=== PATIENT | male | born 1945 | race Caucasian/White ===

== ENCOUNTER 2019-07-27 06:18 | Day surgery (SDC) | payer OTHER, SELFPAY ==
[2019-07-26 09:08] VITALS: BMI 18.1
--- NOTE | 2019-07-26 09:29 | ECG_ITS ---
Measurements Intervals [place] Rate: 85 P: KS: 0 QRS: -64 QRSD: 134 T: 63 QT: 371 QTc: 443 ATRIAL FIBRILLATION RIGHT BUNDLE BRANCH BLOCK [120+ ms QRS DURATION, UPRIGHT V1, 40+ ms S IN I/aVL/V4/V5/V6] LEFT ANTERIOR FASCICULAR BLOCK [QRS AXIS <= -45, QR IN I, RS IN II] PROBABLE SEPTAL MYOCARDIAL INFARCTION [35 ms Q WAVE IN V1/V2], OF INDETERMINATE AGE No previous ECG available for comparison Electronically Signed On 07-26-2019 19:21:24 [employer] by Miguel Campbell M.D. [id number]
[2019-07-26 09:47] LABS: Hematocrit 40.3 % (42.0-52.0); Hemoglobin 12.6 g/dL (11.7-16.6); Mean Corpuscular HGB Conc 31.3 g/dL (30.0-36.0); Mean Corpuscular Hemoglobin 26.8 pg (28.0-34.0); Mean Corpuscular Volume 85.7 fL (80-94); Mean Platelet Volume 10.2 fL (7.4-10.4); Platelet Count 276 10^3/cmm (130-400); Red Cell Distribution Width 17.4 % (12.1-15.1); White Blood Count 8.3 10^3/uL (4.0-10.0)
[2019-07-26 09:54] LABS: Blood Urea Nitrogen 43 mg/dL (8-23); Calcium 10.1 mg/Dl (8.8-10.2); Carbon Dioxide 25 mmol/L (22-29); Chloride 99 mmol/L (98-107); Glucose 132 mg/dL (74-106); Sodium 135 mmol/L (136-145)
[2019-07-26 10:32] LABS: Band Neutrophils Absolute 0.1 10^3/cmm (0.0-1.2); Giant Platelets Trace; Lymphocytes 30 %; Monocytes Absolute 0.7 10^3/cmm (0.1-0.6); Platelet Estimate Normal (Normal); Segmented Neutrophils 61 %; Total Cells Counted 100 (0-100)
[2019-07-27] VITALS (9 sets, daily range): BP systolic 111–130; BP diastolic 52–72; PULSE 31–61; RESP 15–20; TEMP 36.3–36.6; O2SAT 95–97
[2019-07-27] MEDS: sodium chloride 0.9% 1,000 ML 30 ML IV (07:10)
[2019-07-27 07:11] LABS: Glucose Point of Care 102 mg/dL (70-110)
--- NOTE | 2019-07-27 07:16 | ANES.PREANES ---
Pre-Anesthetic Assessment Pre-Anesthetic Assessment: Height/Weight: Height 1.78 m Weight 57.153 kg Temp Pulse Resp BP Pulse Ox 98 F 60 18 130/65 96 07/27/19 07:01 07/27/19 07:01 07/27/19 07:01 07/27/19 07:01 07/27/19 07:01 Proposed Procedure: Operation Date: 07/27/19 08:20 Proposed Procedures p Laparoscopic poss open Inguinal Hernia Repair w/ mesh [id number], K40.90(Not Applicable) - Vincent Dean MD Familial anesthetic complications: no trouble Was Beta Ketty taken within 24 hours: Yes Last intake: Intake Last Liquid Date 07/26/19 Last Liquid Time 22:00 Last Solid Date 07/26/19 Last Solid Time 19:00 Social: Social History: Tobacco Packs per day: 1 ppd Exam: Pre-Anes Outpt Exam: alert, oriented x 3, clear to auscultation bilaterally and regular rate & rhythm Additional Exam Findings (including area of procedure): afib Airway: MP: 2 Additional comments: edentulous Pulmonary: Pulmonary: COPD CV/HEM: CV/HEM: Afib and HTN Comments: AAA, stents placed in 2002 : : Chronic renal Insufficiency Hepatic: Hepatic: None reported GI: GI: GERD Metabolic: Metabolic: DM and Hyperlipidemia Musc/skel: Musc/skel: None reported Neuropsych: Neuropsych: None reported Anesthetic Plan: ASA status: IV Anesthesia: General Risk of > 500 ml blood loss (7ml/kg in children): No Other Pertinent Information: apixaban last taken on thursday Meds/Allergies Current Medications: Current Medications Generic Name Dose Route Start Last Admin Trade Name Freq PRN Reason Stop Dose Admin Sodium Chloride 1,000 mls @ 30 ml s/hr 07/27/19 06:30 07/27/19 07:10 Sodium Chloride 0.9% IV 07/28/19 06:29 30 mls/hr .Q24H ADEOLA Administration PFSH Anesthesia PFSH: Social History (Updated 07/26/19 @ 09:06 by Marnie Rossi RN) Smoking and tobacco status: current every day smoker cigarettes Packs smoked per day: 1 Years cigarettes smoked: 60 Data Anesthesia Labs: Other Labs: Laboratory Results - last 48 hr 07/26/19 07/26/19 07/27/19 09:20 09:20 07:08 WBC 8.3 RBC 4.70 Hgb 12.6 Hct 40.3 L MCV 85.7 MCH 26.8 L MCHC 31.3 RDW 17.4 H Plt Count 276 MPV 10.2 Total Counted 100 Segmented Neutroph ils 61 Band Neutrophils 1.0 Lymphocytes (Manua l) 30 Monocytes (Manual) 8.0 Absolute Monocytes 0.7 H Platelet Estimate Normal Giant Platelets Trace Sodium 135 L Potassium 5.0 Chloride 99 Carbon Dioxide 25 Anion Gap 16.0 BUN 43 H Creatinine 1.9 H Glucose 132 H POC Glucose 102 Calcium 10.1 Cardiac Studies: No Data to Display
--- NOTE | 2019-07-27 08:22 | ANES.PREANES ---
Pre-Anesthetic Assessment Pre-Anesthetic Assessment: Height/Weight: Height 1.78 m Weight 57.153 kg Temp Pulse Resp BP Pulse Ox 98 F 60 18 130/65 96 07/27/19 07:01 07/27/19 07:01 07/27/19 07:01 07/27/19 07:01 07/27/19 07:01 Proposed Procedure: Operation Date: 07/27/19 08:20 Proposed Procedures p Laparoscopic poss open Inguinal Hernia Repair w/ mesh [id number], K40.90(Not Applicable) - Vincent Dean MD Last intake: Intake Last Liquid Date 07/26/19 Last Liquid Time 22:00 Last Solid Date 07/26/19 Last Solid Time 19:00 Social: Social History: Alcohol and Tobacco Exam: Pre-Anes Outpt Exam: oriented x 3 Meds/Allergies Current Medications: Current Medications Generic Name Dose Route Start Last Admin Trade Name Freq PRN Reason Stop Dose Admin Sodium Chloride 1,000 mls @ 30 ml s/hr 07/27/19 06:30 07/27/19 07:10 Sodium Chloride 0.9% IV 07/28/19 06:29 30 mls/hr .Q24H ADEOLA Administration PFSH Anesthesia PFSH: Medical History (Updated 07/27/19 @ 08:23 by Vincent Dean MD) Hyperlipemia (Acute) Hypertension (Acute) Stage 4 chronic kidney disease (Acute) Surgical History (Updated 07/27/19 @ 08:23 by Vincent Dean MD) History of coronary artery stent placement (Acute) Social History (Updated 07/26/19 @ 09:06 by Marnie Rossi RN) Smoking and tobacco status: current every day smoker cigarettes Packs smoked per day: 1 Years cigarettes smoked: 60 Data Anesthesia Labs: Other Labs: Laboratory Results - last 48 hr 07/26/19 07/26/19 07/27/19 09:20 09:20 07:08 WBC 8.3 RBC 4.70 Hgb 12.6 Hct 40.3 L MCV 85.7 MCH 26.8 L MCHC 31.3 RDW 17.4 H Plt Count 276 MPV 10.2 Total Counted 100 Segmented Neutroph ils 61 Band Neutrophils 1.0 Lymphocytes (Manua l) 30 Monocytes (Manual) 8.0 Absolute Monocytes 0.7 H Platelet Estimate Normal Giant Platelets Trace Sodium 135 L Potassium 5.0 Chloride 99 Carbon Dioxide 25 Anion Gap 16.0 BUN 43 H Creatinine 1.9 H Glucose 132 H POC Glucose 102 Calcium 10.1 Cardiac Studies: No Data to Display
--- NOTE | 2019-07-27 08:40 | PM.HPUD ---
H&P update H&P Update: DATE OF SURGERY/PROCEDURE: 07/27/19 DATE H&P PERFORMED: 07/19/19 H&P UPDATE INFORMATION: H&P completed within last 30 days, No changes to prior documentation and H&P to be scanned into chart PLANNED PROCEDURE: Operation Date: 07/27/19 08:20 Proposed Procedures p Laparoscopic poss open Inguinal Hernia Repair w/ mesh [id number], K40.90(Not Applicable) - Vincent Dean MD Full H&P Medications/Allergies: Current Medications: Current Medications Generic Name Dose Route Start Last Admin Trade Name Freq PRN Reason Stop Dose Admin Sodium Chloride 1,000 mls @ 30 ml s/hr 07/27/19 06:30 07/27/19 07:10 Sodium Chloride 0.9% IV 07/28/19 06:29 30 mls/hr .Q24H ADEOLA Administration Perinent History: Medical/Surgical History: Medical History (Updated 07/27/19 @ 08:23 by Vincent Dean MD) Hyperlipemia (Acute) Hypertension (Acute) Stage 4 chronic kidney disease (Acute) Social History: Social History Smoking and tobacco status: current every day smoker cigarettes Packs smoked per day: 1 Years cigarettes smoked: 60
[2019-07-27] MEDS: ceFAZolin 1,000 MG in sodium chloride 0.9% (plus) 50 ML 100 MG IV (09:00)
--- NOTE | 2019-07-27 09:37 | PM.OP ---
Operative Report Post-Operative Note: Date of procedure: 07/27/19 Preop Diagnosis: Symptomatic reducible right inguinal hernia Post-op Findings: Reducible indirect right inguinal hernia Procedure Done: Laparoscopic total extraperitoneal repair of reducible right indirect inguinal hernia Pathology: none sent Surgeon: Vincent Dean Anesthesia: general Estimated blood loss (mL): 10 Condition: stable Disposition: PACU Operative Report: Procedure: The patient was taken to the operating room. After IV antibiotic was administered, the abdomen was prepped and draped in a sterile manner. Using a 15 blade, a 1.0 cm transverse incision was made infraumbilically on the right side. Subcutaneous tissue was divided using electrocautery and the anterior rectus sheath divided using an 11 blade. The rectus muscle was retracted laterally and the extraperitoneal space identified. A 11 mm port was placed and 12 mm of pneumoperitoneum was created. A 10 mm 30? scope was introduced and the retrorectus space was opened using the camera up to the pubic symphysis and 5 mm ports were placed in the midline, one 2-fingerbreadths above the pubic symphysis and the other midway between these two ports under direct visualization. Blunt dissection was carried out to open up the tissue in the midline and to the pubic symphysis, which was identified. The dissection was then carried laterally where the iliopubic tract was identified. There was no femoral, obturator or direct hernia noted. The inferior epigastric artery was identified and dissection was carried posterior to it and laterally, the space was opened up to the level of the umbilicus superior to the anterior superior iliac spine. I then proceeded to dissect out the spermatic cord and the indirect hernial sac was reduced . 15 x 10cm Ultrapro mesh was rolled and introduced through the 10 mm port and then rolled laterally and apposed well against the abdominal wall to cover the myopectineal orifice completely. 10 Cc of 0.5% Marcaine was infiltrated into the preperitoneal space. The extraperitoneal space was desufflated under direct visualization to ensure no slippage of hernial sac under the mesh. All ports were removed, the anterior rectus fascia at the infraumbilical port closed using figure of eight 0 Vicryl sutures, subcutaneous tissue approximated using 3-0 Vicryl sutures and skin at all three port sites were closed using running subcuticular 4-0 Monocryl sutures and Dermabond. 10 mL of 0.5% Marcaine was infiltrated at the port sites. The patient was stable throughout the procedure. Coding Level of Care Code Acute Technical Services Coordinator for Justin Kern
--- NOTE | 2019-07-27 13:29 | ANE.PACU ---
 Inpatient post-anesthesia follow up: Airway intact: Yes Vital signs: Temperature 97.8 F Pulse Rate [Left B rachial] 31 Respiratory Rate 18 Blood Pressure [Le ft Arm] 120/55 Pulse Oximetry 97 Oxygen Delivery Me thod Room Air Oxygen Flow Rate Fraction of Inspir ed Oxygen Hydration adequate: Yes Nausea and vomiting: No Mental status: Baseline
== END 2019-07-27 11:00 | disposition home or self-care (01) ==
PROVIDERS: Anesthesiology Pain Medicine; Family Provider Internal Medicine; PCP Internal Medicine; Visit Provider Surgery
PROC: (CPT 49650; principal; 2019-07-27 08:20)
DX: K40.90 Unilateral inguinal hernia, without obstruction or gangrene, not specified as recurrent (principal); E78.5 Hyperlipidemia, unspecified; K21.9 Gastro-esophageal reflux disease without esophagitis; E11.22 Type 2 diabetes mellitus with diabetic chronic kidney disease; I12.9 Hypertensive chronic kidney disease with stage 1 through stage 4 chronic kidney disease, or unspecified chronic kidney disease; N18.4 Chronic kidney disease, stage 4 (severe); Z95.5 Presence of coronary angioplasty implant and graft; F17.210 Nicotine dependence, cigarettes, uncomplicated; J44.9 Chronic obstructive pulmonary disease, unspecified; I48.91 Unspecified atrial fibrillation
CPT/HCPCS: 49505; 36416; 80048; 82962; 85007; 85027; 93005; J0690; J1100; J2001; J2405; J2704; J3010; J3490; J7030

== ENCOUNTER 2019-07-28 17:17 | Emergency (ER) | payer OTHER, SELFPAY ==
[2019-07-28 17:54] VITALS: BP 133/66; PULSE 59; RESP 20; TEMP 36.7; O2SAT 93; BMI 18.1
--- NOTE | 2019-07-28 20:02 | ED_ITS ---
Entered by Maribel Marie, acting as scribe for Toyin Ambriz Jul 28, 2019 17:17 HPI - Male Genitourinary General: Chief complaint: Urogenital-Male Stated complaint: dysuria Time Seen by Provider: 07/28/19 19:42 History of Present Illness: HPI Narrative: 73 yo male presents to ED with complaints of urinary retention. The patient had hernia surgery yesterday with Dr Dean. The patient states that he has not been able to urinate much since that time. MD Complaint: dysuria Onset (ago): day(s) Duration: constant Location: abdomen Severity: moderate Quality: dull Relieving factors: urination Exacerbating factors: none Context: recent surgery Associated symptoms: Reports dysuria; Deny nausea or vomiting Review of Systems General: Reports: other (negative unless marked) Const: Denies: fever, chills, body aches, fatigue, malaise or diaphoresis Eyes: Denies: change in vision or blurry vision ENMT: Denies: throat pain, painful swallowing, hoarseness, ear pain, ear discharge, Change in hearing or nasal discharge Card: Denies: chest pain, palpitations, irregular heart rhythm, syncope, pre- syncope, shortness of breath on exertion or shortness of breath when lying down Resp: Denies: shortness of breath, productive cough, non-productive cough, wheezing, coughing up blood or chest congestion GI: Denies: abdominal pain, nausea, vomiting, vomiting blood, coffee grounds in vomit, diarrhea, constipation, cramping, blood in stool or black tarry stool : Reports: painful urination Musc: Denies: neck pain, back pain, extremity pain, extremity swelling, joint pain, joint swelling, joint warmth or joint stiffness Skin/Breast: Denies: rash, skin tenderness or yellow skin Neuro: Denies: headache, numbness in extremities, weakness in extremities, changes in sensation, lack of coordination, difficulty walking, dizziness, vertigo or confusion Endo: Denies: excessive thirst, tired all the time, cold intolerance, excessive sweating, flushing or hot flashes Brian/Lymph: Denies: easy bruising, easy bleeding, petechiae or enlarged lymph nodes All/Imm: Denies: hives, throat swelling, tongue swelling, facial swelling or acute wheezing PFSH ED PFSH: Statuses (acute, chronic, etc) shown below reflect problem list status as previously entered and may not be historically accurate Medical History (Updated 07/28/19 @ 21:25 by Toyin Ambriz) Hyperlipemia (Acute) Hypertension (Acute) Stage 4 chronic kidney disease (Acute) Surgical History (Updated 07/27/19 @ 08:23 by Vincent Dean MD) History of coronary artery stent placement (Acute) Social History (Updated 07/26/19 @ 09:06 by Marnie Rossi RN) Smoking and tobacco status: current every day smoker cigarettes Packs smoked per day: 1 Years cigarettes smoked: 60 Physical Exam Const: COMMON NORMALS: no apparent distress, oriented x3, no limitations, healthy appearing and well nourished EXAM LIMITATIONS: no altered mental status GENERAL APPEARANCE: cooperative, well kempt and well developed ORIENTATION/CONSCIOUSNESS: Yes awake HENMT: COMMON NORMALS: normocephalic, head/scalp atraumatic, hearing grossly normal bilaterally, external ears normal, EAC's normal, external nose normal and moist oral mucous membranes HEAD & SCALP: normal to inspection, normocephalic and atraumatic FACE & SINUS: normal facial exam and face symmetric NOSE: external nose normal and nares normal EXTERNAL EAR: Yes external ears normal EXTERNAL AUDITORY CANAL: EAC's normal MOUTH: oral and palatal mucosa normal and tongue normal Eye: COMMON NORMALS: PERRL, EOMs intact bilaterally, conjunctivae normal and no scleral icterus GENERAL EYE: normal appearance of both eyes and normal light reflex CONJUNCTIVA: Yes conjunctivae normal SCLERA: sclerae normal CORNEA: Yes corneas normal PUPIL: Yes PERRL DIRECT OPHTHALMOSCOPY: Yes normal light reflex Neck/C-Spine: COMMON NORMALS: full ROM, no lymphadenopathy, supple, no meningeal signs and no JVD GENERAL: Yes normal visual inspection and Yes trachea midline CERVICAL SPINE: Yes cervical ROM normal Chest: COMMONS NORMALS: inspection of chest normal and palpation of chest normal Resp: COMMON NORMALS: normal respiratory effort, no retractions, no use of accessory muscles and clear to auscultation bilaterally EFFORT & INSPECTION: Yes able to speak in complete sentences AUSCULTATION: clear to auscultation bilaterally Cardio: COMMON NORMALS: no JVD, regular rate, regular rhythm, S1 normal heart sound, S2 normal heart sound, no gallops, no clicks, no murmurs and no rub JUGULAR VENOUS DISTENTION: no JVD RATE: regular rate RHYTHM: regular rhythm HEART SOUNDS: S1 normal and S2 normal GI: COMMON NORMALS: soft to palpation, non-tender, no hepatosplenomegaly and no masses INSPECTION: Yes normal to inspection PALPATION: Yes soft and Yes no hepatosplenomegaly : COMMON NORMALS: Yes no CVA tenderness BLADDER/KIDNEY EXAM: Yes no CVA tenderness Back/Pelvis: COMMON NORMALS: no CVA tenderness, thoracic and lumbar spine normal to inspection, no thoracic nor lumbar tenderness and thoraco-lumbar ROM normal Extremity: COMMON NORMALS: normal to inspection, full ROM, normal capillary refill, no joint enlargement, no clubbing, cyanosis or edema and no calf tenderness Neuro: COMMON NORMALS: oriented x3, CN's II-XII intact bilaterally, moves all extremities, no focal motor deficits and no sensory deficits noted MENINGEAL SIGNS: Yes no meningeal signs Psych: COMMON NORMALS: mental status grossly normal, thought process normal, cooperative, affect normal, speech normal and activity/motor behavior normal APPEARANCE: Yes well kempt SPEECH: Yes normal speech THOUGHT PROCESS: normal thought process Skin: COMMON NORMALS: no rashes or lesions noted, skin turgor normal, no jaundice, no petechiae and no mottling GENERAL SKIN EXAM: no rashes or lesions noted and turgor normal Course Vital Signs: Vital signs: Vital Signs Temperature 98.1 F 07/28/19 17:54 Pulse Rate 60 07/28/19 21:44 Respiratory Rate 18 07/28/19 21:06 Blood Pressure 172/72 07/28/19 21:44 Pulse Oximetry 93 07/28/19 21:44 MDM - Male MDM Narrative: Medical decision making narrative: The patient comes in with urinary retention that is been intermittent since his hernia surgery. I do not believe he has had retention long enough to cause any type of urinary/kidney injury. The patient agrees to return if there is any fever or vomiting. Lab Data: Attestation: I reviewed the patient's lab results. Labs: Lab Results 07/28/19 Range/Units 18:08 Urine Color Yellow (Yellow) Urine Appearance Clear (CLEAR) Urine pH 5 (5-7) Ur Specific Gravit y 1.015 (1.005-1.030) Urine Protein Neg (Negative) Urine Glucose (UA) Norm (Normal) Urine Ketones Negative (Negative) Urine Occult Blood Neg (Negative) Urine Nitrate Negative (Negative) Urine Bilirubin Neg (NEGATIVE) Urine Urobilinogen Norm (Negative) mg/dL Ur Leukocyte Wendy ase Negative (Negative) Discharge Plan Discharge Patient Disposition: Home, Self-Care Clinical Impression: Acute retention of urine Condition: Stable Prescriptions: New Cipro 500 mg tablet 500 mg PO BID Qty: 20 RF: 0 No Action alogliptin 6.25 mg Tablet 6.25 mg PO DAILY RF: 0 isosorbide mononitrate 30 mg Tablet Extended Release 24 Hr 30 mg PO DAILY RF: 0 simvastatin 80 mg Tablet 80 mg PO DAILY RF: 0 tamsulosin 0.4 mg Capsule 0.4 mg PO DAILY RF: 0 ranitidine HCl 150 mg Tablet 150 mg PO BID RF: 0 nitroglycerin 0.4 mg Tablet, Sublingual 0.4 mg SUBLINGUAL Q5M PRN (Reason: Chest Pain) RF: 0 hydrochlorothiazide 25 mg Tablet 25 mg PO DAILY RF: 0 albuterol sulfate 90 mcg/actuation Hfa Aerosol Inhaler 2 puff INHALATION QID RF: 0 atenolol 50 mg Tablet 50 mg PO DAILY RF: 0 Vitamin D3 4,000 unit Capsule 4,000 unit PO DAILY RF: 0 apixaban 2.5 mg Tablet 2.5 mg PO BID RF: 0 [place] 5-325 mg tablet 1 tab PO Q6H Qty: 20 RF: 0 Colace 100 mg capsule 100 mg PO BID Qty: 30 RF: 0 Discharge Orders: Discharge Order (Routine); Ordered 07/28/19 Ordered By: Toyin Ambriz Referrals: Fercho Courtney [Primary Care Provider] - Vincent Dean MD [Physician] - 4-7 days Discharge Diet: Usual diet Discharge Activity: Increase activity as tolerated Patient Instructions: Garcia Catheter Care, Urinary Retention in Men (ED), Urinary Retention Activity Restrictions/Additional Instructions: Please return to the ER immediately for any of the signs or symptoms listed on your discharge instruction sheets, worsening/changing of your symptoms, you are not getting better as quickly as expected, or for ANY other cause or concerns. Discharge Date/Time: 07/28/19 21:45 Coding Level of Care Code ED Commercial Internship for Sharong Fwd Exam Problem Focused The documentation recorded by the Frank pace Valerie R, accurately reflects the service I personally performed and the decisions made by me, Toyin Ambriz Jul 28, 2019 17:17
[2019-07-28 20:18] VITALS: BP 175/85; PULSE 64; RESP 18; O2SAT 93
[2019-07-28 21:04] LABS: Add Urine Microscopic? NO
[2019-07-28 21:06] VITALS: BP 173/78; RESP 18; O2SAT 94
[2019-07-28 21:13] LABS: Bilirubin Urine Neg (NEGATIVE); Blood Urine Neg (Negative); Glucose Urine UA Norm (Normal); Ketones Urine Negative (Negative); Leukocyte Esterase Urine Negative (Negative); Nitrate Urine Negative (Negative); Protein Urine Neg (Negative); Specific Gravity, Urine 1.015 (1.005-1.030); Urine Appearance Clear (CLEAR); Urine Color Yellow (Yellow); Urobilinogen Urine Norm (Negative); pH Urine 5 (5-7)
[2019-07-28 21:44] VITALS: BP 172/72; PULSE 60; O2SAT 93
--- NOTE | 2019-07-29 13:32 | DCPLANNER ---
vice president & general manager [employer] [place] had message to schedule a follow up appointment for patient with general surgery, Dr. Dean. vice president & general manager [employer] [place] called [facility], spoke with Sobeida, a follow up appointment is scheduled for Thursday, August 01, 2019 at 1:[address] Dean. Clinic will call patient with appointment information. Case manage called [facility], with [facility], and informed her that patient had been seen in the ED and that patient has a follow up appointment scheduled.
--- NOTE | 2019-08-10 15:11 | DCPLANNER ---
Patient attended appointment scheduled for 08.01.19 with Real Estate Manager.
== END 2019-07-28 21:45 | disposition home or self-care (01) ==
PROVIDERS: Emergency Medicine; Emergency Provider Emergency Medicine; Family Provider Internal Medicine; PCP Internal Medicine
DX: R33.9 Retention of urine, unspecified (principal); E78.5 Hyperlipidemia, unspecified; I12.9 Hypertensive chronic kidney disease with stage 1 through stage 4 chronic kidney disease, or unspecified chronic kidney disease; N18.4 Chronic kidney disease, stage 4 (severe); F17.210 Nicotine dependence, cigarettes, uncomplicated
CPT/HCPCS: 81003; 99281

== ENCOUNTER 2019-07-31 08:40 | Emergency (ER) | payer OTHER, SELFPAY ==
[2019-07-31 08:46] VITALS: BP 113/61; PULSE 108; RESP 16; TEMP 36.6; O2SAT 94; BMI 18.2
--- NOTE | 2019-07-31 08:57 | ED_ITS ---
Entered by Winston Bundy LPN, acting as scribe for Jul 31, 2019 08:40 HPI - General Adult General: Chief complaint: General Medical Stated complaint: CONSTIPATED Time Seen by Provider: 07/31/19 08:51 Source: patient Limitations: no limitations History of Present Illness: HPI narrative: 73 yo male presents with c/o constipation. He had a right inguinal hernia repair 4 days ago, has been taking Hydrocodone 5/325mg since. His pain is only mild at this time, has Hydrocodone on board now. He has some discomfort in the abd, feels like he needs to have a BM but he can't. Last BM was 5 days ago, he normally has regular daily BM's. He has been passing gas. He denies nausea or vomiting, has been able to eat without issue. complaint: Constipation Onset (ago): day(s) (onset 4 days ago) Severity: moderate Relieving factors: none Exacerbating factors: medication (worsened with Hydrocodone) Associated symptoms: Deny chest pain, confusion, diaphoresis, dyspnea, headache(s), nausea, rash or vomiting Review of Systems Const: Denies: fever, chills, night sweats or diaphoresis Eyes: Denies: change in vision or blurry vision ENMT: Denies: throat pain Card: Denies: chest pain Resp: Denies: shortness of breath or productive cough GI: Reports: constipation; Denies: abdominal pain, nausea, vomiting or change in bowel habits : Denies: difficulty urinating or painful urination Musc: Denies: extremity pain or joint pain Skin/Breast: Denies: rash Neuro: Denies: headache, difficulty walking or confusion Psych: Denies: suicidal ideation or homicidal ideation PFSH ED PFSH: Statuses (acute, chronic, etc) shown below reflect problem list status as previously entered and may not be historically accurate Medical History Hyperlipemia (Acute) Hypertension (Acute) Stage 4 chronic kidney disease (Acute) Surgical History (Updated 07/31/19 @ 09:36 by Winston Bundy LPN) H/O right inguinal hernia repair (Acute) History of coronary artery stent placement (Acute) Social History Smoking and tobacco status: current every day smoker cigarettes Packs smoked per day: 1 Years cigarettes smoked: 60 Physical Exam Const: COMMON NORMALS: no apparent distress, oriented x3, no limitations and alert EXAM LIMITATIONS: no altered mental status GENERAL APPEARANCE: cooperative, comfortable and well developed; not in distress, not anxious and not lethargic ORIENTATION/CONSCIOUSNESS: Yes awake, Yes oriented to person, Yes oriented to place and Yes oriented to time; not lethargic HENMT: COMMON NORMALS: normocephalic, head/scalp atraumatic and external nose normal HEAD & SCALP: normocephalic and atraumatic FACE & SINUS: normal facial exam NOSE: external nose normal Eye: COMMON NORMALS: PERRL, EOMs intact bilaterally, conjunctivae normal and no scleral icterus CONJUNCTIVA: Yes conjunctivae normal PUPIL: Yes PERRL Neck/C-Spine: COMMON NORMALS: full ROM GENERAL: Yes normal visual inspection Chest: COMMONS NORMALS: inspection of chest normal and palpation of chest normal Resp: COMMON NORMALS: normal respiratory effort, no retractions, no use of accessory muscles and clear to auscultation bilaterally EFFORT & INSPECTION: Yes able to speak in complete sentences AUSCULTATION: clear to auscultation bilaterally Cardio: COMMON NORMALS: regular rate, regular rhythm, no murmurs and peripheral pulses 2+ throughout RATE: regular rate RHYTHM: regular rhythm PERIPHERAL PULSES: pulses 2+ throughout, radial pulses present and posterior tibial pulses present GI: COMMON NORMALS: normal to inspection, nondistended, normoactive bowel soun ds, soft to palpation, non-tender, no hepatosplenomegaly, no masses and no bruits AUSCULTATION: Yes normoactive bowel sounds PALPATION: Yes soft, No firm, No tender, No guarding, No rigid and Yes no hepatosplenomegaly OTHER: Hernia incision clean dry and intact Dermabond glue present over umbilicus Extremity: COMMON NORMALS: normal to inspection, full ROM, normal capillary refill, no joint enlargement and no clubbing, cyanosis or edema Neuro: COMMON NORMALS: oriented x3 SENSORIUM/ORIENTATION: Yes alert, Yes oriented to person, Yes oriented to place, Yes oriented to time and No lethargic Psych: COMMON NORMALS: mental status grossly normal, thought process normal, cooperative, affect normal, speech normal and activity/motor behavior normal SPEECH: Yes normal speech THOUGHT PROCESS: normal thought process Skin: COMMON NORMALS: no rashes or lesions noted and skin turgor normal GENERAL SKIN EXAM: no rashes or lesions noted, elasticity normal and turgor normal Course ED course: Patient resting comfortably. X-ray shows large stool but no impaction or obstruction. Patient comfortable going home. Vital signs and exam is emergent Reevaluation(s): Reevaluation #1: Patient resting comfortably discussed radiology results. Told him he has large amount of stool but there is stool in the rectal vault and no sign of any obstruction. Gave him instructions on [id number] therapies as well as increasing fiber and liquids. He asked me to take out the catheter that is been replaced but he has an appointment to see a urologist tomorrow so deferred. Time: 09:43 Vital Signs: Vital signs: Vital Signs Temperature 97.9 F 07/31/19 08:46 Pulse Rate 108 H 07/31/19 08:46 Respiratory Rate 16 07/31/19 08:46 Blood Pressure 113/61 07/31/19 08:46 Pulse Oximetry 94 07/31/19 08:46 MDM - General Adult MDM Narrative: Medical decision making narrative: Differential includes complication from surgery, constipation, small bowel obstruction, gastroenteritis. Patient is a 73-year-old male who had hernia surgery at the [facility] laparoscopically last week. He has not had a bowel movement since Thursday. He has not complained of severe abdominal pain there is no feculent or bilious vomiting. In fact there is no nausea or vomiting at all. He is mostly just concerned that he is not had a bowel movement since then. He has been taking opiate pain medication so this is likely the cause. Patient has a normal abdominal exam incisions are clean dry and intact. He has normal bowel sounds and is been passing gas very low suspicion for SBO. We will go ahead and get a KUB to assess for stool load. There is impaction or considerable amount of stool in the rectal vault we may be able to disimpact here if not will increase medications and have him follow-up Imaging Data^: KUB: Radiologist's impression: IMPRESSION: Large amount of stool throughout the colon. Dictated By:Victor M Johnson Discharge Plan Discharge Condition: Stable Prescriptions: No Action Cipro 500 mg tablet 500 mg PO BID Qty: 20 RF: 0 alogliptin 6.25 mg Tablet 6.25 mg PO DAILY RF: 0 isosorbide mononitrate 30 mg Tablet Extended Release 24 Hr 30 mg PO DAILY RF: 0 simvastatin 80 mg Tablet 80 mg PO DAILY RF: 0 tamsulosin 0.4 mg Capsule 0.4 mg PO DAILY RF: 0 ranitidine HCl 150 mg Tablet 150 mg PO BID RF: 0 nitroglycerin 0.4 mg Tablet, Sublingual 0.4 mg SUBLINGUAL Q5M PRN (Reason: Chest Pain) RF: 0 hydrochlorothiazide 25 mg Tablet 25 mg PO DAILY RF: 0 albuterol sulfate 90 mcg/actuation Hfa Aerosol Inhaler 2 puff INHALATION QID RF: 0 atenolol 50 mg Tablet 50 mg PO DAILY RF: 0 Vitamin D3 4,000 unit Capsule 4,000 unit PO DAILY RF: 0 apixaban 2.5 mg Tablet 2.5 mg PO BID RF: 0 Reserve 5-325 mg tablet 1 tab PO Q6H Qty: 20 RF: 0 Colace 100 mg capsule 100 mg PO BID Qty: 30 RF: 0 Referrals: Fercho Courtney [Primary Care Provider] - Coding Level of Care Code ED Visually Impaired Teacher for Chg Fwd Exam Problem Focused The documentation recorded by the Gregor pace Dani Elizabeth, LPN, accurately reflects the service I personally performed and the decisions made by Ronan de los santos Kenneth F, MD Jul 31, 2019 08:40
--- NOTE | 2019-07-31 09:06 | XRR_ITS ---
PROCEDURE INFORMATION: Exam: XR Abdomen, 1 View Exam date and time: 07/31/2019 9:07 AM Age: 73 years old Clinical indication: Abdominal pain; Localized; Lower; Prior surgery; Surgery date: 3-7 days post-operative; Surgery type: Inguinal; Additional info: Constipation TECHNIQUE: Imaging protocol: XR of the abdomen. Views: Frontal supine view of the abdomen. 1 View. COMPARISON: CT abdomen pelvis con [id number] 06/29/2019 11:55 AM FINDINGS: Gastrointestinal tract: No dilated gas-filled loops of bowel. There is a large amount of stool throughout the colon with stool and gas in the rectum. No signs to suggest mechanical bowel obstruction or an ileus. Bones/joints: No acute osseous abnormality. XR/XR [facility] [id number] IMPRESSION: Large amount of stool throughout the colon.
[2019-07-31] MEDS: lactulose oral liq 20 gm/30 mL UDC PO (10:26)
[2019-07-31] MEDS: polyethylene glycol 3350 Pkt 17 gm PO (10:26)
[2019-07-31] MEDS: magnesium citrate Btl 296 mL PO (10:26)
[2019-07-31 10:39] VITALS: BP 99/64; PULSE 85; RESP 16; O2SAT 93
== END 2019-07-31 10:40 | disposition home or self-care (01) ==
PROVIDERS: Emergency Provider Family Medicine; Family Provider Internal Medicine; PCP Internal Medicine
DX: K59.00 Constipation, unspecified (principal); E78.5 Hyperlipidemia, unspecified; I12.9 Hypertensive chronic kidney disease with stage 1 through stage 4 chronic kidney disease, or unspecified chronic kidney disease; N18.4 Chronic kidney disease, stage 4 (severe); F17.210 Nicotine dependence, cigarettes, uncomplicated
CPT/HCPCS: 74018; 99281

== ENCOUNTER → 2019-09-19 09:57 | Outpatient (BNVA) | payer OTHER, MEDICARE, SELFPAY | PROVIDERS: Family Provider Internal Medicine; PCP Internal Medicine; Visit Provider Urology | DX: R33.9 Retention of urine, unspecified (principal); N40.0 Benign prostatic hyperplasia without lower urinary tract symptoms | CPT/HCPCS: 81001 ==

== ENCOUNTER 2019-10-17 14:51 | Outpatient (CLI) | payer OTHER, MEDICARE, SELFPAY ==
--- NOTE | 2019-10-17 14:57 | US_ITS ---
WS: [id number] ULTRASOUND RENAL TECHNIQUE: Ultrasound examination of both kidneys. CLINICAL INFORMATION: ABNORMAL CT SCAN COMPARISON: Noncontrast CT June 29, 2019 FINDINGS: RIGHT: Right kidney is normal in size and appearance. Echogenicity: Normal Hydronephrosis: None. Perinephric fluid: None. Right kidney measures: 9.7 cm x 4.8 cm x 4.0 cm. LEFT: Upper pole left renal cyst measuring 1.8 x 1.1 cm and 1.2 x 0.9 cm additional renal cyst lower pole left kidney measuring 2.0 x 1.2 cm Left kidney is normal in size and appearance. Echogenicity: Normal. Hydronephrosis: None. Perinephric fluid: None. Left kidney measures: 10.4 cm x 4.3 cm x 4.7 cm. Fusiform infrarenal abdominal aortic aneurysm measuring 3.3 cm in maximum AP dimension. Enlarged pros olivas. Recommend correlation PSA. US/US renal BI* [id number] IMPRESSION: 1. Several left renal cysts described above. 2. No hydronephrosis in either kidney. 3. Enlarged prostate. Recommend correlation PSA. 4. Fusiform infrarenal abdominal aortic aneurysm appears stable since the prio r CT June 29, 2019.
== END 2019-10-17 14:52 | disposition home or self-care (01) ==
LOC: RAD 14:57
PROVIDERS: Family Provider Internal Medicine; PCP Internal Medicine; Visit Provider Internal Medicine
DX: R93.89 Abnormal findings on diagnostic imaging of other specified body structures (principal); Q61.02 Congenital multiple renal cysts; N40.0 Benign prostatic hyperplasia without lower urinary tract symptoms
CPT/HCPCS: 76770

== ENCOUNTER 2021-05-03 15:27 | Outpatient (CLI) | payer OTHER, SELFPAY ==
--- NOTE | 2021-05-03 15:47 | US_ITS ---
WS: [id number] RENAL ULTRASOUND HISTORY: STAGE 3 B KIDNEY DISEASE COMPARISON: 10/17/2019 TECHNIQUE: 2-D and color Doppler imaging of the kidney submitted. Right kidney: 8.2 cm x 4.5 cm x 3.8 cm. Mild atrophy with no solid mass or obstruction. Normal cortical medullary differentiation. Left kidney: 9.8 cm x 5.3 cm x 5.0 cm. Normal size kidney. No obstruction. There are multiple acquired cysts throughout the kidney. No solid mass. Largest cyst in the superior pole measures 1.9 x 1.3 x 1.6 cm. Aorta: Moderate atherosclerosis aorta. Scattered plaque with mild dilatation of the aorta. Maximum tr ansverse diameter is 3.8 cm. Maximum AP diameter is 3.7 cm. Urinary Bladder: Normal distention. Mild prostate gland enlargement. US/US renal BI* [id number] IMPRESSION: 1. No renal obstruction. 2. Multiple acquired LEFT renal cyst. No solid mass or obstruction. 3. Mild RIGHT renal atrophy. 4. Abdominal aortic aneurysm with a maximum diameter of 3.8 cm. Diameter has s lightly increased in size since the prior CT of 06/29/2019. Maximum diameter at that time was 3.4 cm.
== END 2021-05-03 15:28 | disposition home or self-care (01) ==
LOC: US 15:29
PROVIDERS: PCP Family Medicine; Visit Provider Internal Medicine
DX: N18.32 Chronic kidney disease, stage 3b (principal); Q61.02 Congenital multiple renal cysts; N26.1 Atrophy of kidney (terminal); I71.4 Abdominal aortic aneurysm, without rupture
CPT/HCPCS: 76770

== ENCOUNTER → 2022-03-11 12:50 | Outpatient (BNVA) | payer OTHER, SELFPAY | PROVIDERS: PCP Family Medicine; Visit Provider Surgery | DX: Z86.010 Personal history of colon polyps (principal); N50.811 Right testicular pain | CPT/HCPCS: 99203 ==

== ENCOUNTER 2022-04-23 07:29 | Day surgery (SDC) | payer OTHER, SELFPAY ==
[2022-04-21 13:59] VITALS: BMI 15.3
[2022-04-23] MEDS: sodium chloride 0.9% 1,000 ML 30 ML IV (07:45)
[2022-04-23 07:47] VITALS: BP 131/70; PULSE 64; RESP 18; TEMP 36.4; O2SAT 98
--- NOTE | 2022-04-23 07:53 | ANES.PREANE2 ---
Pre-Anesthetic Assessment Height/Weight: Height 1.78 m Weight 48.534 kg Temp Pulse Resp BP Pulse Ox 97.6 F 64 18 131/70 98 04/23/22 07:47 04/23/22 07:47 04/23/22 07:47 04/23/22 07:47 04/23/22 07:47 Preop Diagnosis: Symptomatic reducible right inguinal hernia Operation Date: 04/23/22 09:30 Proposed Procedures p EGD and colonoscopy [id number],Z86.010(Not Applicable) - Harsh Monge DO s Colonoscopy(Not Applicable) - Harsh Monge DO Familial anesthetic complications: hard to wake up. Could not use restroom after Was Beta Ketty taken within 24 hours: Yes Was Clonidine taken within 24 hours: N/A Last intake: Intake Last Liquid Date 04/22/22 Last Liquid Time 21:00 Last Solid Date 04/21/22 Social Tobacco 50+ pack years Exam alert, oriented x 3, clear to auscultation bilaterally and regular rate & rhythm Airway Submandibular: within normal limits Cervical ROM: within normal limits Mallampati: Class II Dentition: false Pulmonary Chronic Obstructive Pulmonary Disease, Cough, Exertional Dyspnea and Shortness of Breath CV/HEM Coronary Artery Disease, Deep Vein Thrombosis, Hypertension and Myocardial Infarction (PTCA 10 yrs ago) Chronic Renal Insufficiency Hepatic None reported GI Gastroesophageal Reflux Disease Metabolic None reported Musc/skel Lower Back Pain, Osteoarthritis/DJD and Weakness (Right leg. Uses waller) Neuropsych None reported Anesthetic Plan ASA status: 3 Anesthesia: MAC Medications/Allergies Home Medications Medication Instructions Recorded Confirmed Last Taken Type albuterol sulfate 90 mcg/actuation 2 puff inhalation QID 07/26/19 04/23/22 04/22/22 History aerosol inhaler alogliptin 6.25 mg tablet 6.25 mg PO DAILY 07/26/19 04/23/22 04/22/22 History apixaban 2.5 mg tablet 2.5 mg PO BID 07/26/19 04/22/22 04/20/22 History atenolol 50 mg tablet 12.5 mg PO DAILY 07/26/19 04/23/22 04/22/22 History hydrochlorothiazide 25 mg tablet 25 mg PO DAILY 07/26/19 04/23/22 04/22/22 History isosorbide mononitrate 30 mg 30 mg PO DAILY 07/26/19 04/23/22 04/22/22 History tablet,extended release 24 hr nitroglycerin 0.4 mg sublingual 0.4 mg sublingual Q5M PRN Chest 07/26/19 04/21/22 Unknown History tablet Pain docusate sodium 100 mg capsule 100 mg PO BID #30 caps 07/27/19 04/23/22 04/22/22 Rx (Colace) cholecalciferol (vitamin D3) 10 400 unit PO BID 08/04/19 04/23/22 04/22/22 History mcg (400 unit) chewable tablet simvastatin 80 mg tablet 80 mg PO .COMPLEX 08/04/19 04/23/22 04/22/22 History Allergies Allergy/AdvReac Type Severity Reaction Status Date / Time lisinopril Allergy ALGY-Rash Verified 04/23/22 08:15 [facility] Anesthesia Medical History (Updated 03/15/22 @ 21:41 by Harsh Monge DO) BPH NOS w/o ur obs/LUTS Hyperlipemia Hypertension Postoperative urinary retention Right inguinal hernia Stage 4 chronic kidney disease Surgical History (Updated 03/15/22 @ 21:41 by Harsh Monge DO) H/O right inguinal hernia repair History of coronary artery stent placement History of facial surgery Chainsaw accident. History of hip surgery right Family History Mother , AT AGE 89-CVA Stroke Father , AT AGE 42-HEART ATTACK No problems noted. Denies family history of Anesthesia complication Bleeding disorder Social History Smoking and tobacco status: current every day smoker cigarettes Packs smoked per day: 1 Years cigarettes smoked: 60 Alcohol intake: current Alcohol intake frequency: few times a month Lives independently: Yes Household members: spouse Marital status: Current occupational status: retired History of recent travel: No Data Anesthesia Cardiac Studies: No Data to Display
[2022-04-23 08:05] LABS: Glucose Point of Care 83 mg/dL (70-110)
--- NOTE | 2022-04-23 08:26 | PM.HP ---
Providers/Chief Complaint Primary Care Provider: Rani Parker MD Chief Complaint: Colon cancer screening History of Present Illness Abel Farfan is a 76 year old male here for colonoscopy Medications/Allergies Home Medications Medication Instructions Recorded Confirmed Last Taken Type albuterol sulfate 90 mcg/actuation 2 puff inhalation QID 07/26/19 04/23/22 04/22/22 History aerosol inhaler alogliptin 6.25 mg tablet 6.25 mg PO DAILY 07/26/19 04/23/22 04/22/22 History apixaban 2.5 mg tablet 2.5 mg PO BID 07/26/19 04/22/22 04/20/22 History atenolol 50 mg tablet 12.5 mg PO DAILY 07/26/19 04/23/22 04/22/22 History hydrochlorothiazide 25 mg tablet 25 mg PO DAILY 07/26/19 04/23/22 04/22/22 History isosorbide mononitrate 30 mg 30 mg PO DAILY 07/26/19 04/23/22 04/22/22 History tablet,extended release 24 hr nitroglycerin 0.4 mg sublingual 0.4 mg sublingual Q5M PRN Chest 07/26/19 04/21/22 Unknown History tablet Pain docusate sodium 100 mg capsule 100 mg PO BID #30 caps 07/27/19 04/23/22 04/22/22 Rx (Colace) cholecalciferol (vitamin D3) 10 400 unit PO BID 08/04/19 04/23/22 04/22/22 History mcg (400 unit) chewable tablet simvastatin 80 mg tablet 80 mg PO .COMPLEX 08/04/19 04/23/22 04/22/22 History Allergies Allergy/AdvReac Type Severity Reaction Status Date / Time lisinopril Allergy ALGY-Rash Verified 04/23/22 08:15 PFSH Acute PFSH: Medical History (Updated 03/15/22 @ 21:41 by Harsh Monge DO) BPH NOS w/o ur obs/LUTS Hyperlipemia Hypertension Postoperative urinary retention Right inguinal hernia Stage 4 chronic kidney disease Surgical History (Updated 03/15/22 @ 21:41 by Harsh Monge DO) H/O right inguinal hernia repair History of coronary artery stent placement History of facial surgery Chainsaw accident. History of hip surgery right Family History Mother , AT AGE 89-CVA Stroke Father , AT AGE 42-HEART ATTACK No problems noted. Denies family history of Anesthesia complication Bleeding disorder Social History Smoking and tobacco status: current every day smoker cigarettes Packs smoked per day: 1 Years cigarettes smoked: 60 Alcohol intake: current Alcohol intake frequency: few times a month Lives independently: Yes Household members: spouse Marital status: Current occupational status: retired History of recent travel: No Vitals/I&O/Wt Last Vital Signs Temp 97.6 F 04/23/22 07:47 Pulse 64 04/23/22 07:47 Resp 18 04/23/22 07:47 BP 131/70 04/23/22 07:47 Pulse Ox 98 04/23/22 07:47 Weight last 48 hrs Weight 107 lb A&P Assessment and plan (1) Encounter for screening colonoscopy: Plan Colonoscopy Attestations Medical Necessity Statement*: Home Coding Level of Care Code Acute Applications Engineer Manufacturing for Justin Fwd Diagnoses Encounter for screening colonoscopy Z12.11
[2022-04-23 09:29] VITALS: BP 161/80; PULSE 65; RESP 20; TEMP 36.1; O2SAT 99
[2022-04-23 09:44] VITALS: BP 165/88; PULSE 62; RESP 18; O2SAT 96
--- NOTE | 2022-04-23 10:10 | ANE.PACU2 ---
Inpatient post-anesthesia follow up: Airway intact: Yes Vital signs: Temperature 97 F Pulse Rate 62 Respiratory Rate 18 Blood Pressure 165/88 Pulse Oximetry 96 Oxygen Delivery Me thod Room Air Oxygen Flow Rate Fraction of Inspir ed Oxygen Hydration adequate: Yes Nausea and vomiting: No Pain level: 1 Mental status: Baseline
== END 2022-04-23 10:11 | disposition home or self-care (01) ==
PROVIDERS: PCP Family Medicine; Visit Provider Surgery
PROC: 0DJD8ZZ Inspection of Lower Intestinal Tract, Via Natural or Artificial Opening Endoscopic (ICD-10-PCS; CPT 45378; 2022-04-23 09:30)
DX: Z12.11 Encounter for screening for malignant neoplasm of colon (principal); K51.40 Inflammatory polyps of colon without complications; Z86.010 Personal history of colon polyps; N40.1 Benign prostatic hyperplasia with lower urinary tract symptoms; N13.8 Other obstructive and reflux uropathy; E78.5 Hyperlipidemia, unspecified; I12.9 Hypertensive chronic kidney disease with stage 1 through stage 4 chronic kidney disease, or unspecified chronic kidney disease; N18.4 Chronic kidney disease, stage 4 (severe); J44.9 Chronic obstructive pulmonary disease, unspecified; I25.10 Atherosclerotic heart disease of native coronary artery without angina pectoris; Z86.718 Personal history of other venous thrombosis and embolism; I25.2 Old myocardial infarction; K21.9 Gastro-esophageal reflux disease without esophagitis; M19.90 Unspecified osteoarthritis, unspecified site; F17.210 Nicotine dependence, cigarettes, uncomplicated
CPT/HCPCS: 36416; 45385; 82962; 88305; J2704; J7030

== ENCOUNTER → 2022-05-06 09:14 | Outpatient (BNVA) | payer OTHER, SELFPAY | PROVIDERS: PCP Family Medicine; Visit Provider Surgery | DX: Z09 Encounter for follow-up examination after completed treatment for conditions other than malignant neoplasm (principal) | CPT/HCPCS: 99212 ==

== ENCOUNTER → 2022-07-24 14:26 | Outpatient (BNVA) | payer OTHER, SELFPAY | PROVIDERS: PCP Family Medicine; Referring Provider Family Medicine; Visit Provider Internal Medicine | DX: E27.9 Disorder of adrenal gland, unspecified (principal); R63.4 Abnormal weight loss; Z68.1 Body mass index [BMI] 19.9 or less, adult | CPT/HCPCS: 99204 ==

== ENCOUNTER 2022-08-05 10:58 | Outpatient (CLI) | payer OTHER, MEDICARE, SELFPAY ==
--- NOTE | 2022-08-05 11:04 | US_ITS ---
WS: [id number] TESTICULAR ULTRASOUND HISTORY: right testicular pain COMPARISON: None available. TECHNIQUE: Real-time and color Doppler imaging or utilized to perform a testicular ultrasound. Right testicle: 4.4 cm x 3.4 cm x 2.3 cm. Normal size and echogenicity. No mass or torsion. Normal color Doppler is present throughout. Systolic and diastolic velocities are both present. Small simple hydrocele. Right epididymis: Normal size epididymis. Small epididymal head cyst measuring 5 x 4 x 4 mm. No incre ased vascularity. Left testicle: 4.3 cm x 3.7 cm x 2.4 cm. Normal size and echogenicity. No mass or torsion. Normal color Doppler is present throughout. Systolic and diastolic velocities are both present. Small simple hydrocele. Left epididymis: Normal epididymis with no increased vascularity. US/US scrotum [id number] IMPRESSION: 1. No testicular mass or torsion. 2. Small RIGHT epididymal cyst. 3. Very small bilateral simple hydroceles.
== END 2022-08-05 10:59 | disposition home or self-care (01) ==
PROVIDERS: PCP Family Medicine; Visit Provider Surgery
DX: N43.2 Other hydrocele (principal); N50.3 Cyst of epididymis
CPT/HCPCS: 76870

== ENCOUNTER 2022-11-08 06:09 | Outpatient (CLI) | payer OTHER, SELFPAY ==
--- NOTE | 2022-11-08 | PETR_ITS ---
PROCEDURE INFORMATION: Exam: PET/CT Skull Base to Mid-thigh Exam date and time: 11/08/2022 9:32 AM Age: 77 years old Clinical indication: Abnormal findings; Abnormal CT at outside facility; Patient HX: Abnormal CT, lung nodules, kidney cysts, enlarged prostate LABS AND CLINICAL REPORTS: Glucose: 93 mg/dl Treatment strategy for malignancy (PET staging): Initial Staging (PI) TECHNIQUE: Imaging protocol: Following at least four-hour fasting and following the injection of radiopharmaceutical, low dose CT images were obtained. Then, PET images were obtained. Attenuation corrected images were constructed using the CT scan. Fused images of PET and CT were reviewed. The standardized uptake values (SUV) reported below are maximum values within a region of interest, expressed in gm/ml. Exam includes orbital meatal line to mid-thigh. Radiopharmaceutical: 15.57 mCi F-18 FDG (Fluorodeoxyglucose), IV. Time of imaging post radiopharmaceutical administration: 1 hour Injection site: Left hand COMPARISON: Scrotal ultrasound 08/05/2022, Renal ultrasound 05/03/2021, CT abdomen pelvis wo con [id number] 06/29/2019 11:55 AM FINDINGS: Brain: Visualized brain has normal physiologic uptake. Pharynx: No abnormal uptake. Larynx: No abnormal uptake. Thyroid: A non radiotracer avid hypodense nodule in the left thyroid lobe is noted measuring 8 mm on series 3, image 40 compatible with a benign finding. Lungs, pleura and trachea: No abnormal uptake. Non radiotracer avid biapical bullous changes and pleural scarring is noted. A 2-3 mm noncalcified lateral right upper lobe nodule on series 3, image 52 is noted without elevated uptake. Possible additional slightly more inferiorly located nodule measuring 5-6 mm on series 3, image 54 without elevated uptake. Assessment of the lungs is slightly limited by respiratory motion artifact. Heart: Normal physiologic uptake. Mediastinal space: No abnormal uptake. Liver: No abnormal uptake. Gallbladder and bile ducts: No abnormal uptake. Pancreas: No abnormal uptake. Spleen: No abnormal uptake. Calcified granulomas in the spleen are present. Adrenal glands: No abnormal uptake. Kidneys and ureters: Normal physiologic uptake. A non radiotracer avid low-density structure in the superior pole of the left kidney measures 1 cm on series 3, image 89. Stomach and bowel: No abnormal uptake. Reproductive: The prostate gland is mildly prominent without evidence of abnormal uptake. Vasculature: No abnormal uptake. There are diffuse atherosclerotic changes. An infrarenal abdominal aortic aneurysm measures up to 4.4 x 4.2 cm on series 3, image 108. Lymph nodes: There are radiotracer avid mediastinal and bilateral hilar lymph nodes. Examples: In the precarinal space measuring 1.1 cm in diameter, SUV max 2.0 and in the subcarinal space measuring approximately 1.1 cm in diameter on series 3, image 58, SUV max 2.9. Uptake in the left hilar region demonstrates an SUV max 3.4 and uptake in the right hilar region demonstrates an SUV max 3.4. Assessment of the size of hilar lymph nodes is limited without intravenous contrast. Bones/joints: No abnormal uptake in the visualized axial and appendicular skeleton. Postoperative changes of left hip arthroplasty are noted. A non radiotracer avid sclerotic density in the medial left iliac bone measures 8 mm consistent with a benign bone island.There is mild diffuse vertebral body spondylosis. Bilateral L5 pars defects are noted. Soft tissues: No abnormal uptake in the visualized head, neck, chest, abdomen, pelvis, and extremities. METRICS: Mediastinal blood pool: SUV max 1.8 [facility] IN[facility] [id number] IMPRESSION: 1. Mild uptake is noted in mildly prominent mediastinal lymph nodes as well as within the Seema hilar lymph nodes likely within additional small lymph nodes.This may be reactive, secondary to infectious or inflammatory involvement. Neoplastic involvement such as lymphoma is less likely but cannot be entirely excluded. 2. A non radiotracer avid low-density lesion in the left kidney is noted corresponding to a benign-appearing simple cyst noted on the comparison ultrasound. 3. Mild prominence of the prostate gland without elevated uptake. Assessment of the prostate gland can be limited by PET-CT. 4. There are 1-2 small upper lobe pulmonary nodules without elevated uptake. Assessment of small nodules can be limited by PET-CT. 5. Infrarenal abdominal aortic aneurysm. 6. Additional nonurgent findings as detailed above.
== END 2022-11-08 06:10 | disposition home or self-care (01) ==
LOC: RAD 11-10 06:09
PROVIDERS: PCP Family Medicine; Visit Provider Family Medicine
DX: R93.89 Abnormal findings on diagnostic imaging of other specified body structures (principal)
CPT/HCPCS: 78815; A9552

== ENCOUNTER 2022-12-03 14:23 | Oncology outpatient (recurring) (ONCR) | payer OTHER, SELFPAY | END 2022-12-17 23:59 | disposition home or self-care (01) | LOC: ONCMED 14:24 | PROVIDERS: PCP Family Medicine; Visit Provider Internal Medicine Medical Oncology | DX: R59.0 Localized enlarged lymph nodes (principal); R91.1 Solitary pulmonary nodule; F17.210 Nicotine dependence, cigarettes, uncomplicated | CPT/HCPCS: 99204 ==

== ENCOUNTER 2023-01-15 09:02 | Outpatient (CLI) | payer OTHER, SELFPAY ==
[2023-01-15] MEDS: iohexol 350 mg/mL 500 mL Btl (per mL) IV (09:10)
--- NOTE | 2023-01-15 09:30 | CT_ITS ---
WS: [id number] CT chest w con* [id number] HISTORY: follow up TECHNIQUE: Axial imaging performed through the thorax. Coronal and sagittal reformats are submitted. All CT scans at [facility] use at least one of these dose optimization techniques: automated exposure control; mA and/or kV adjustment per patient size (includes targeted exams where dose is mat ched to clinical indication); or iterative reconstruction. CONTRAST: Omnipaque 350; 100 mL IV. DLP: 191.36 mGy.cm COMPARISON: PET/CT 11/06/2022. Lungs and central airway: Mild pulmonary hyperinflation. There are 2 nodules in the RIGHT upper lobe. The largest measures 8 mm. There is a smaller 4 mm nodule adjacent to the larger nodule. These were negative on PET/CT. New lingular opacification. Pleura: Normal. No pleural effusion. Heart and pericardium: Normal size heart with no pericardial effusion. Mediastinum and kavita: 14 mm necrotic appearing subcarinal lymph node. There are few at additional lym ph nodes. The largest measures 13 mm along the inferior RIGHT paratracheal region. Vessels: Extensive atherosclerotic changes within the aorta. Calcified plaque with intimal thickening . There are a few small plaque ulcerations within the aorta. No aneurysm. Normal size pulmonary arter y. Chest wall and lower neck: LEFT thyroid nodule 10 mm. Upper abdomen: Small granulomata in the liver. Blush-like area of enhancement in the RIGHT lobe is pr obably a small hemangioma, this is subcentimeter and difficult to characterize. There is an additiona l low-attenuation nodule in the LEFT lobe. No bile duct dilatation. Normal portal vein. Visualized ki dneys with mild cortical atrophy. Superior pole LEFT renal cyst 12 mm. No adrenal mass. Suprarenal at herosclerotic changes within the aorta. Osseous structures: No destructive process. CT/CT chest w con* [id number] IMPRESSION: 1. Stable subcentimeter PET/CT negative RIGHT upper lobe pulmonary nodules. Th e largest measures 8 mm. No change since 11/08/2022. Due to their small size PET /CT may not be demonstrated increased uptake. Recommend continued close follow- up. Chest CT recommended 6 months. 2. Necrotic subcarinal lymph node and indeterminate paratracheal lymph nodes. These lymph nodes can also be followed up by chest CT in 6 months. Indeterminat e but thought less likely to be neoplastic on the recent PET/CT. 3. Extensive atherosclerotic plaque within the aorta. 4. LEFT renal cyst.
[2023-01-15 09:34] LABS: Blood Urea Nitrogen 23 mg/dL (8-23)
== END 2023-01-15 09:03 | disposition home or self-care (01) ==
PROVIDERS: PCP Family Medicine; Visit Provider Internal Medicine Medical Oncology
DX: I89.8 Other specified noninfective disorders of lymphatic vessels and lymph nodes (principal); N28.1 Cyst of kidney, acquired; I70.0 Atherosclerosis of aorta; R91.8 Other nonspecific abnormal finding of lung field
CPT/HCPCS: 71260; 82565; 84520; Q9967

== ENCOUNTER 2023-05-08 08:45 | Outpatient (CLI) | payer OTHER, SELFPAY ==
--- NOTE | 2023-05-08 08:54 | USCV_ITS ---
NaheedAbel Age: 77 Gender: M : 1945 Exam Date: 05/08/2023 09:14 Ordering Phys: Rani Parker MD Technologist: Dheeraj Mayberry Exam Location: [facility] [place] Indication: AAA HISTORY: Diameter (cm) AP x Transverse x Length Velocity (cm/s) Waveform Prox Aorta: 1.77 x 2.44 x 70.90 Mid Aorta: 4.02 x 3.92 x 4.08 29.50 Distal Aorta: 2.39 x 2.54 x 42.30 Right Iliac Prox: 0.71 x 1.05 x 169.20 Left Iliac Prox: 1.03 x 1.15 x 94.80 Stent Prox Landing x x Aneurysmal Sac Max x x Lt Lat Sac Dim Rt Lat Sac Dim Stent Dist Landing x x Right Iliac Stent x x Left Iliac Stent x x Right Renal Art Left Renal Art FINDINGS: CONCLUSIONS Peripheral mural thrombus and moderate atheromatous plaque AAA measuring 4.0 x 3.9 x 4.1cm AP x trans x CC in the mid abdominal aorta Vance Daley MD (Electronically Signed) Final Date: 08 May 2023 13:12 S
== END 2023-05-08 08:46 | disposition home or self-care (01) ==
PROVIDERS: PCP Family Medicine; Visit Provider Family Medicine
DX: I71.40 Abdominal aortic aneurysm, without rupture, unspecified (principal)
CPT/HCPCS: 93978

== ENCOUNTER 2023-07-17 12:36 | Emergency (ER) | payer OTHER, SELFPAY ==
[2023-07-17] VITALS (9 sets, daily range): BP systolic 80–122; BP diastolic 55–87; PULSE 83–127; RESP 18–27; TEMP 36.8; O2SAT 90–100; BMI 22.9
--- NOTE | 2023-07-17 12:51 | XRR_ITS ---
PROCEDURE INFORMATION: Exam: XR Chest Exam date and time: 07/17/2023 1:04 PM Age: 77 years old Clinical indication: Shortness of breath; Additional info: SOB TECHNIQUE: Imaging protocol: Radiologic exam of the chest. Views: 1 view. COMPARISON: CT chest w con* [id number] 01/15/2023 9:34 AM FINDINGS: Lungs: Unremarkable. No consolidation. Pleural spaces: Unremarkable. No pleural effusion. No pneumothorax. Heart/Mediastinum: Unremarkable. No cardiomegaly. Bones/joints: Unremarkable. XR/XR chest 1V portable [id number] IMPRESSION: No acute findings.
--- NOTE | 2023-07-17 12:55 | ED_ITS ---
HPI - Arrhythmia/Palpitations 2 General: Chief Complaint: Arrhythmia/Palpitations Stated Complaint: afib Time Seen by Provider: 07/17/23 12:40 Source: patient Mode of arrival: EMS Limitations: no limitations History of Present Illness: Patient is a 77-year-old male who presents to the ED from the [facility] after they were concerned for his A-fib with RVR that he was found to be in during a clinic appointment. They also noted his blood pressure was low however family states this is normal for him. He was also found to be hypoxic. Family states he has chronic COPD/emphysema but normally does not require oxygen. Patient states he was at the [facility] for a routine follow-up visit and had no physical complaints at that time. Family states that he just underwent CT chest imaging through the [facility] on 07/08. They state this was ordered routinely for surveillance of pulmonary nodules. Patient tells me his atrial fibrillation is intermittent. He does not complain of racing heart rate or palpitations. He does take carvedilol and apixaban for this. He chronically feels short of breath and does not feel any more so short of breath upon arrival to the ED. No recent fevers. MD complaint: atrial fibrillation Duration: intermittent Arrhythmia history: atrial fibrillation and on anti-coagulants Associated symptoms: Deny nausea, pre-syncope, syncope or vomiting Review of Systems 2 Const: Denies: fever(s), chills, body aches, fatigue or malaise Card: Denies: chest pain, palpitations, irregular heart rhythm, edema, swelling of feet/ankles, lightheadedness, syncope, pre-syncope, orthopnea, leg pain with exertion or acrocyanosis Resp: Reports: dyspnea (chronic-at baseline); Denies: productive cough, wheezing, hemoptysis or chest congestion GI: Denies: abdominal pain, nausea, vomiting or diarrhea Musc: Denies: neck pain, back pain, extremity pain or joint pain Skin/Breast: Denies: rash Neuro: Denies: headache(s), numbness in extremities, weakness in extremities, sensory changes, difficulty walking or dizziness PFS ED 2 PFSH: Medical History Postherpetic neuralgia Type 2 diabetes mellitus currently not requiring medication GERD (gastroesophageal reflux disease) Chronic atrial fibrillation Coronary artery disease COPD (chronic obstructive pulmonary disease) Ischemic cardiomyopathy History of myocardial infarction Postoperative urinary retention BPH NOS w/o ur obs/LUTS Right inguinal hernia Hypertension Hyperlipemia Stage 4 chronic kidney disease Surgical History History of hip surgery right History of facial surgery Chainsaw accident. H/O right inguinal hernia repair History of coronary artery stent placement Family History Mother , AT AGE 89-CVA Stroke Father , AT AGE 42-HEART ATTACK No problems noted. Denies family history of Anesthesia complication Bleeding disorder Social History Smoking and tobacco/nicotine status: current every day tobacco/nicotine user cigarettes Packs smoked per day: 1 Years cigarettes smoked: 60 Alcohol intake: current Alcohol intake frequency: few times a month Substance/Drug Use: never Lives independently: Yes Household members: spouse Marital status: Current occupational status: retired Physical Exam 2 Const: COMMON NORMALS: no acute distress, patient oriented x3, no limitations and alert GENERAL APPEARANCE: other (chronically ill appearing) O RIENTATION/CONSCIOUSNESS: Yes awake, Yes oriented to person, Yes oriented to place and Yes oriented to time HENMT: COMMON NORMALS: normocephalic and atraumatic HEAD & SCALP: normal to inspection, normocephalic and atraumatic Eye: COMMON NORMALS: no scleral icterus Chest: COMMONS NORMALS: normal inspection of the chest Resp: COMMON NORMALS: normal respiratory effort AUSCULTATION: rhonchi Cardio: RATE: tachycardic RHYTHM: abnormal rhythm irregularly irregular GI: COMMON NORMALS: Normal to inspection, nondistended, normoactive bowel sounds present, Soft to palpation and non-tender PALPATION: Yes Soft to palpation Extremity: COMMON NORMALS: normal to inspection, capillary refill normal, no joint enlargement, no clubbing, cyanosis or edema, no calf tenderness and no pedal edema Neuro: COMMON NORMALS: patient oriented x3, moves all extremities, no focal motor deficits and no sensory deficits noted SENSORIUM/ORIENTATION: Yes alert, Yes oriented to person, Yes oriented to place and Yes oriented to time Skin: COMMON NORMALS: no rashes or lesions noted GENERAL SKIN EXAM: no rashes or lesions noted Course 2 Vital Signs: Vital signs: Vital Signs Temperature 98.3 F 07/17/23 12:39 Pulse Rate 94 07/17/23 15:30 Respiratory Rate 20 H 07/17/23 15:30 Blood Pressure 100/64 07/17/23 15:30 Pulse Oximetry 94 07/17/23 15:30 Oxygen Delivery Me thod Room Air 07/17/23 15:30 Oxygen Flow Rate 1 07/17/23 14:35 MDM - Arrhythmia/Palpitations Medical Decision Making Patient here after he was seen at a routine visit to the [facility] and found to be in A-fib with RVR with low blood pressure and possible hypoxia. While here it was hard to get a good waveform on patient but eventually we did have RT come down and do a home oxygen evaluation. They were able to walk patient around the room with a good waveform and he stayed around 92 to 96%. Patient has no complaints of shortness of breath or difficulty breathing. He has chronic COPD/emphysema and is an everyday smoker. He feels like his shortness of breath is at baseline. He has no complaints of chest pain. Upon arrival he was in A-fib with RVR but this was easily controlled after IV diltiazem. This also help with blood pressure. Labs show mild chronic elevations to his BUN/Cr. His baseline troponin was elevated 36-this most likely is related to his chronic conditions and not indicative of acute coronary syndrome. He has a negative delta. BNP is elevated at roughly 4800 with no previous comparisons. He clinically does not appear fluid overloaded. His CXR is normal. Patient states at this time he would like to go home and given his lack of symptoms I think this is appropriate. I spoke to Dr. Willoughby and we will increase his dose of carvedilol to hopefully better help with his atrial fib rate. Return to ED precautions given. I would like him to follow-up with clinical business analyst next week in [place]. Family agrees to care plan. Lab Data 07/17/23 13:04 07/17/23 13:04 Radiology Impressions Chest X-Ray 07/17/23 12:51 IMPRESSION: No acute findings. Laboratory Results WBC 7.77 10^3/uL (3.29-11.43) 07/17/23 13:04 RBC 4.92 10^6/uL (3.85-5.65) 07/17/23 13:04 Hgb 12.80 g/dL (11.27-16.99) 07/17/23 13:04 Hct 39.9 % (37-53) 07/17/23 13:04 MCV 81.1 fl (82-101) L 07/17/23 13:04 MCH 26.0 pg (27-33) L 07/17/23 13:04 MCHC 32.1 g/dL (30-55) 07/17/23 13:04 RDW 17.8 % (12.1-15.1) H 07/17/23 13:04 Plt Count 258 10^3/cmm (157-399) 07/17/23 13:04 MPV 10.2 fL (7.4-10.4) 07/17/23 13:04 Neut % (Auto) 52.4 % 07/17/23 13:04 Lymph % (Auto) 30.1 % 07/17/23 13:04 Lucas % (Auto) 15.1 % 07/17/23 13:04 Eos % (Auto) 1.7 % 07/17/23 13:04 Baso % (Auto) 0.3 % 07/17/23 13:04 Neut # (Auto) 4.08 10^3/uL (1.8-7.7) 07/17/23 13:04 Lymph # (Auto) 2.3 10^3/uL (0.8-4.8) 07/17/23 13:04 Lucas # (Auto) 1.2 10^3/uL (0.2-0.9) H 07/17/23 13:04 Eos # (Auto) 0.1 10^3/uL (0.0-0.8) 07/17/23 13:04 Baso # (Auto) 0.0 10^3/uL (0.0-0.1) 07/17/23 13:04 Nucleated RBC % (auto) 0 % 07/17/23 13:04 Nucleated RBCs # 0.0 /100WBC 07/17/23 13:04 Sodium 135 mmol/L (136-145) L 07/17/23 13:04 Potassium 4.8 mmol/L (3.5-5.1) 07/17/23 13:04 Chloride 100 mmol/L (98-107) 07/17/23 13:04 Carbon Dioxide 24 mmol/L (22-29) 07/17/23 13:04 Anion Gap 15.8 (5-19) 07/17/23 13:04 BUN 32 mg/dL (8-23) H 07/17/23 13:04 Creatinine 1.4 mg/dL (0.7-1.2) H 07/17/23 13:04 GFR Calculation Not Reportable 07/17/23 13:04 Glucose 97 mg/dL (65-115) 07/17/23 13:04 Calculated Osmolality 287 mOsm/kg (285-295) 07/17/23 13:04 Lactic Acid 0.9 mmol/L (0.5-2.2) 07/17/23 13:04 Calcium 9.5 mg/dL (8.5-10.5) 07/17/23 13:04 Total Bilirubin 0.3 mg/dL (0.15-1.2) 07/17/23 13:04 AST 22 U/L (0-40) 07/17/23 13:04 ALT 13 U/L (0-41) 07/17/23 13:04 Alkaline Phosphatase 89 U/L (40-130) 07/17/23 13:04 Troponin T Baseline 36 ng/L (0-15) H 07/17/23 13:04 Troponin T 120 Minute 34.49 ng/L (0-15) H 07/17/23 15:02 Delta Troponin T -1.51 ABS# (0-10) L 07/17/23 15:02 NT-Pro-B Natriuret Pep 4833 pg/mL (0-450) H 07/17/23 13:04 Total Protein 7.6 g/dL (6.6-8.7) 07/17/23 13:04 Albumin 3.3 g/dL (3.5-5.2) L 07/17/23 13:04 Globulin 4.3 g/dL (1.3-4.6) 07/17/23 13:04 Procalcitonin 0.08 ng/mL (0-0.5) 07/17/23 13:04 SARS-CoV-2 Ag (Rapid) negative (Negative) 07/17/23 13:35 All radiology interpretation(s) finalized by discharge Discharge Plan Discharge Patient Disposition: Home Clinical Impression: Atrial fibrillation with rapid ventricular response COPD (chronic obstructive pulmonary disease) Qualifiers: COPD type: chronic bronchitis Chronic bronchitis type: unspecified Qualified Code(s): J42 - Unspecified chronic bronchitis Condition: Stable Prescriptions: Changed carvedilol 3.125 mg tablet 6.25 mg PO BID Qty: 60 0RF Rx Instructions: must administer with a meal/food No Action cholecalciferol (vitamin D3) 400 unit tablet,chewable 400 unit PO BID tamsulosin 0.4 mg capsule 0.4 mg PO DAILY alogliptin 6.25 mg Tablet 6.25 mg PO DAILY isosorbide mononitrate 30 mg Tablet Extended Release 24 Hr 30 mg PO DAILY nitroglycerin 0.4 mg Tablet, Sublingual 0.4 mg SUBLINGUAL Q5M PRN (Reason: Chest Pain) albuterol sulfate 90 mcg/actuation Hfa Aerosol Inhaler 2 puff INHALATION QID PRN (Reason: Shortness Of Breath) Eliquis 5 mg Tablet 2.5 mg PO BID atorvastatin 80 mg Tablet 40 mg PO DAILY megestrol 20 mg Tablet 80 mg PO QID Discharge Orders: Discharge ED (Routine); Ordered 07/17/23 Ordered By: Sujey Morales Referrals: Rani Parker MD [Primary Care Provider] - Activity Restrictions/Additional Instructions: As we discussed you did not want to be admitted to the hospital and wanted to go home. I have increased the dose of your carvedilol to better help with your atrial fibrillation rate. As we discussed I want you to follow-up with your clinical business analyst next week for further follow-up. You need to return to the emergency department for chest pain, shortness of breath, difficulty breathing, palpitations, feeling like your heart is racing or skipping beats, or any other concerns you may have. Coding Level of Care Code ED Asbestos Coverer for Justin Kern
[2023-07-17] MEDS: dilTIAZem 5 mg/mL SDV 5 mL 10 MG IVP ×2 (13:05→15:30)
[2023-07-17 13:09] LABS: Basophils % 0.3 %; Eosinophils # 0.1 10^3/uL (0.0-0.8); Eosinophils % 1.7 %; Hematocrit 39.9 % (37-53); Lymphocytes # 2.3 10^3/uL (0.8-4.8); Lymphocytes % 30.1 %; Mean Corpuscular HGB Conc 32.1 g/dL (30-55); Mean Corpuscular Volume 81.1 fl (82-101); Mean Platelet Volume 10.2 fL (7.4-10.4); Monocytes # 1.2 10^3/uL (0.2-0.9); Monocytes % 15.1 %; Neutrophils # 4.08 10^3/uL (1.8-7.7); Neutrophils % 52.4 %; Nucleated Red Blood Cells % 0 %; Platelet Count 258 10^3/cmm (157-399); Red Blood Count 4.92 10^6/uL (3.85-5.65); Red Cell Distribution Width 17.8 % (12.1-15.1); White Blood Count 7.77 10^3/uL (3.29-11.43)
--- NOTE | 2023-07-17 13:14 | ECG_ITS ---
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 Measurements Intervals [place] Rate: 90 P: 0 MA: 0 QRS: -78 QRSD: 123 T: 3 QT: 360 QTc: 442 Interpretive Statements ATRIAL FIBRILLATION RIGHT BUNDLE BRANCH BLOCK [120+ ms QRS DURATION, UPRIGHT V1, 40+ ms S IN I/aVL/V4/V5/V6] LEFT ANTERIOR FASCICULAR BLOCK [QRS AXIS <= -45, QR IN I, RS IN II] Compared to ECG 07/26/2019 09:35:23 Myocardial infarct finding no longer present Electronically Signed On 07-17-2023 14:55:22 IRRIGATION TEACHER by Francis Caicedo M.D. [email or web address]
--- NOTE | 2023-07-17 13:29 | PC.PHAR ---
PT IS [facility]. NO NEED TO FAX [facility]. PTS FAMILY HAS GIVEN CURRENT MED LIST.
[2023-07-17 13:34] LABS: Troponin(5th) Baseline 36 ng/L (0-15)
[2023-07-17 13:38] LABS: Lactic Sepsis W/Reflex 0.9 mmol/L (0.5-2.2)
[2023-07-17 13:41] LABS: NT Pro B Type Natriuretic Pept 4833 pg/mL (0-450); Procalcitonin 0.08 ng/mL (0-0.5)
[2023-07-17 14:03] LABS: Alanine Aminotransferase 13 U/L (0-41); Albumin Level 3.3 g/dL (3.5-5.2); Alkaline Phosphatase 89 U/L (40-130); Anion Gap 15.8 (5-19); Aspartate Amino Transferase 22 U/L (0-40); Blood Urea Nitrogen 32 mg/dL (8-23); Calcium 9.5 mg/dL (8.5-10.5); Carbon Dioxide 24 mmol/L (22-29); Chloride 100 mmol/L (98-107); Globulin 4.3 g/dL (1.3-4.6); Glucose 97 mg/dL (65-115); Osmolality Calculated 287 mOsm/kg (285-295); Potassium 4.8 mmol/L (3.5-5.1); Sodium 135 mmol/L (136-145); Total Bilirubin 0.3 mg/dL (0.15-1.2); Total Protein 7.6 g/dL (6.6-8.7)
[2023-07-17 14:05] LABS: Creatinine Clr Calc Pharmacy 44.7962
[2023-07-17 14:06] LABS: SARS Covid-2 Antigen negative (Negative)
[2023-07-17] MEDS: ipratropium-albuterol 3 mL Neb INHALATION (14:10)
--- NOTE | 2023-07-17 14:52 | ECG_ITS ---
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 Measurements Intervals [place] Rate: 114 P: 0 [place]: 0 QRS: -78 QRSD: 107 T: -15 QT: 333 QTc: 459 Interpretive Statements ATRIAL FIBRILLATION WITH RAPID VENTRICULAR RESPONSE PATTERN CONSISTENT WITH PULMONARY DISEASE POSSIBLE RIGHT VENTRICULAR CONDUCTION DELAY [RSR (QR) IN V1/V2] Compared to ECG 07/17/2023 13:14:06 Right bundle-branch block no longer present Left anterior fascicular block no longer present Electronically Signed On 07-17-2023 15:40:04 ANIMAL RIDE ATTENDANT by Francis Caicedo M.D. [email or web address]
[2023-07-17 15:34] LABS: Troponin 5 2HR 34.49 ng/L (0-15)
[2023-07-17 15:35] LABS: Troponin 5 2HR Delta -1.51 ABS# (0-10)
== END 2023-07-17 16:13 | disposition home or self-care (01) ==
PROVIDERS: Emergency Provider Physician Assistant; PCP Family Medicine
DX: I48.20 Chronic atrial fibrillation, unspecified (principal); J44.89 Other specified chronic obstructive pulmonary disease; Z79.01 Long term (current) use of anticoagulants; Z11.52 Encounter for screening for COVID-19; F17.210 Nicotine dependence, cigarettes, uncomplicated; I13.10 Hypertensive heart and chronic kidney disease without heart failure, with stage 1 through stage 4 chronic kidney disease, or unspecified chronic kidney disease; E11.22 Type 2 diabetes mellitus with diabetic chronic kidney disease; N18.4 Chronic kidney disease, stage 4 (severe); I25.10 Atherosclerotic heart disease of native coronary artery without angina pectoris; I25.2 Old myocardial infarction; E78.5 Hyperlipidemia, unspecified; I25.5 Ischemic cardiomyopathy; I12.9 Hypertensive chronic kidney disease with stage 1 through stage 4 chronic kidney disease, or unspecified chronic kidney disease
CPT/HCPCS: 36415; 71045; 80053; 83605; 83880; 84145; 84484; 85025; 87426; 93005; 94640; 96374; 96375; 99285; J3490